=== PATIENT | male | born 1950 | race Caucasian/White ===

== ENCOUNTER 2024-03-02 17:13 | Emergency (ER) | payer OTHER ==
[~2024-03-02] VITALS: Ht 177.8 cm; Wt 84.8 kg
--- OUTSIDE RECORDS SUMMARY | 2024-03-02 17:19 | XMS ---
PreManage Notification: FRANKLIN GONZALEZ Security Data Management Specialist Events No recent Security Events currently on file CRITERIA MET - [facility] - 2 Visits in 30 Days CARE PROVIDERS There are no care providers on record at this time. Keron has no Care Guidelines for this patient. Karla VISIT COUNT (12 MO.) [address] [facility] NOTE: Visits indicate total known visits. ED/UCC VISIT TRACKING (12 MO.) [facility] COMPLAINT: - MEDICAL CLEARANCE 02/21/2024 15:45 [facility] [place] TYPE: Emergency DIAGNOSES: - Encounter for other specified aftercare - GI BLEED, WEAKNESS 02/19/2024 01:25 [facility] [place] [facility] TYPE: Emergency DIAGNOSES: - Gangrene, not elsewhere classified - Chills, Bodyaches 01/28/2024 15:23 [facility] [place] TYPE: Emergency DIAGNOSES: - Cystitis, unspecified without hematuria - Other fecal abnormalities - Other nonspecific abnormal finding of lung field - Other specified abnormal findings of blood chemistry - Unspecified atrial fibrillation - Unspecified intestinal obstruction, unspecified as to partial versus complete obstruction - Altered Mental status INPATIENT VISIT TRACKING (12 MO.) 01/29/2024 04:20 [facility] TYPE: [facility] COMPLAINT: - SBO,TROPONIN ELEVATION,UTI,PNA DIAGNOSES: 0. Sepsis, unspecified organism 1. Sepsis, unspecified organism 2. Other toxic encephalopathy 3. Pneumonia, unspecified organism 4. Superficial frostbite of right foot, initial encounter 5. Superficial frostbite of left foot, initial encounter 6. Urinary tract infection, site not specified 7. Gastrointestinal hemorrhage, unspecified 8. Rhabdomyolysis 9. Other acute kidney failure 10. Cellulitis of left lower limb 11. Cellulitis of right lower limb 12. Partial intestinal obstruction, unspecified as to cause 13. Moderate protein-calorie malnutrition 14. 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 Other specified abnormal findings of blood chemistry 16. Paroxysmal atrial fibrillation 17. Heart failure, unspecified 18. Anuria and oliguria 19. Elevation of levels of liver transaminase levels 20. Dyspnea, unspecified 21. Aneurysm of the ascending aorta, without rupture 22. Effect of reduced temperature, unspecified, initial encounter 23. Peripheral vascular disease, unspecified 24. Ankylosing spondylitis of unspecified sites in spine 25. Other disorders of phosphorus metabolism 26. Anemia in other chronic diseases classified elsewhere 27. Generalized edema 28. Pressure ulcer of right buttock, unstageable 29. Pressure ulcer of left buttock, unstageable 30. Pressure-induced deep tissue damage of left ankle 31. Pressure-induced deep tissue damage of right ankle 32. Pressure-induced deep tissue damage of other site 33. Bed confinement status 34. Body mass index [BMI] 24.0-24.9, adult 35. Exposure to excessive natural cold, initial encounter 36. Blood alcohol level of less than 20 mg/100 ml 37[address] Other specified places as the place of occurrence of the external cause [email or web address]
[2024-03-02 20:42] LABS: BASOPHILS 0.4 % (0-2); EOSINOPHILS 1.3 % (0-6); HEMATOCRIT 32.8 % (35.0-50.0); HEMOGLOBIN 10.8 g/dL (12.0-18.0); LYMPHOCYTES 11.8 % (24-44); MCH 33.8 (27-36); MCHC 33.1 g/dl (30-36); MCV 102.2 fl (81-99); MONOCYTES 6.2 % (0-12); NEUTROPHILS 80.3 % (39-80); PLATELET COUNT 283 K/uL (140-440); RBC 3.21 M/ul (4.3-5.7); RDW 16.1 (10.5-15.0)
[2024-03-02 21:02] LABS: ALBUMIN 2.7 g/dL (3.4-5.0); ALBUMIN/GLOBULIN RATIO 0.59 (1.1-2.4); ANION GAP 11.1 (7-21); BILIRUBIN, TOTAL 0.5 ng/dL (0.2-1.0); BUN/CREATININE RATIO 10.78 (6.0-28.6); CALCIUM 9.5 mg/dL (8.5-10.1); CREATININE, SERUM 1.02 mg/dL (0.70-1.30); POTASSIUM 4.1 mmol/L (3.5-5.1); PROTEIN, TOTAL 7.3 g/dL (6.4-8.2)
[2024-03-02 21:49] VITALS: BP 106/68
[2024-03-02] MEDS ORDERED: AMOX TR-K CLV1 EAC1 PO (21:49)
[2024-03-02] MEDS ORDERED: AMOXICILLIN/CLAVULANATE K 875 MG HOME.PACK PO ONE (22:00)
== END 2024-03-02 22:04 | disposition home or self-care (01) ==
LOC: ED 17:13
PROVIDERS: Family Medicine
DX: T34.832A Frostbite with tissue necrosis of left toe(s), initial encounter (principal); T34.831A Frostbite with tissue necrosis of right toe(s), initial encounter; T69.9XXA Effect of reduced temperature, unspecified, initial encounter
CPT/HCPCS: 36415; 80053; 83605; 85025; 99283